=== PATIENT | female | born 1995 | race Asian ===

== ENCOUNTER 2020-03-18 19:08 | Emergency (ER) | payer OTHER ==
[~2020-03-18] VITALS: Ht 167.6 cm; Wt 90.9 kg
[2020-03-18] MEDS ORDERED: DIPH25CA85 PO (19:12)
[2020-03-18] MEDS ORDERED: DiphenhydrAMINE HCL 50 MG/ML VIAL IM ONE (20:00)
[2020-03-18] MEDS ORDERED: DEXAMETHASONE SOD PHOS 4 MG/ML 5 ML VIAL IM ONE (20:00)
[2020-03-18] MEDS ORDERED: DiphenhydrAMINE HCL 25 MG CAPSULE PO ONE (20:00)
[2020-03-18 21:15] VITALS: BP 126/94
== END 2020-03-18 21:18 | disposition home or self-care (01) ==
LOC: EMS 19:10
DX: T78.1XXA Other adverse food reactions, not elsewhere classified, initial encounter (principal); X58.XXXA Exposure to other specified factors, initial encounter
CPT/HCPCS: 96372; 99284; J1100; J1200